=== PATIENT | female | born 2000 | race Hispanic/Latino ===

== ENCOUNTER 2022-09-03 18:08 | Emergency (ER) | payer OTHER ==
[2022-09-03 18:48] LABS: #Eosinphils 0.1 thou/uL (0.0-0.7); #Lymphocytes 1.9 thou/uL (1.20-3.40); #Monocytes 0.4 thou/uL (0.11-0.59); %Basophils 0.5 % (0.0-1.0); %Lymphocytes 29.8 % (28.0-48.0); %Monocytes 6.2 % (0.0-4.0); %Neutrophils 62.5 % (31.0-61.0); Hemoglobin 10.6 g/dL (12.0-16.0); Mean Corpuscular Volume 78.3 fl (78.0-98.0); Mean Platelet Volume 11.1 fL (7.4-10.4); Platelet Count 247 10x3/uL (130-400); RBC Distribution Width 15.7 % (11.5-14.5); Red Blood Cell (RBC) Count 4.23 mill/uL (4.00-5.20); White Blood Cell (WBC) Count 6.5 10x3/uL (4.8-10.8)
[2022-09-03 18:54] LABS: BHCG - Serum Negative (NEGATIVE); Pregs Control Background? CLEAR/WHITE (CLR/WHITE); Pregs Control Bar Appear? YES (CONTROL BAR)
[2022-09-03 19:20] LABS: ALT (SGPT) 11 U/L (8-55); AST (SGOT) 13 U/L (5-34); Albumin 4.4 g/dL (3.5-5.0); Alkaline Phosphatase 65 U/L (40-100); Anion Gap 10 mmol/L (10-20); BUN (Urea Nitrogen) 8 mg/dL (7.0-18.7); Bilirubin, Total 0.2 mg/dL (0.2-1.2); Calc. Creatinine Clearance 0 mL/min (70-130); Calcium 9.6 mg/dL (7.8-10.44); Carbon Dioxide 23 mmol/L (22-29); Chloride 108 mmol/L (98-107); Estimated GFR 121; Globulin 3.3 g/dL (2.4-3.5); Glucose 102 mg/dL (70-105); Potassium 3.8 mmol/L (3.5-5.1); Protein, Total 7.7 g/dL (6.0-8.3); Sodium 137 mmol/L (136-145)
[2022-09-03] MEDS ORDERED: hydrOXYzine 25 MG TAB ONE (21:01)
== END 2022-09-03 21:05 | disposition home or self-care (01) ==
LOC: ERS 18:08
DX: F41.1 Generalized anxiety disorder (principal); D64.9 Anemia, unspecified
CPT/HCPCS: 36415; 80053; 84703; 85025; 93005

== ENCOUNTER 2022-09-07 20:17 | Emergency (ER) | payer OTHER | END 2022-09-07 22:40 | disposition home or self-care (01) | LOC: ERS 20:17 | DX: R07.9 Chest pain, unspecified (principal); R06.02 Shortness of breath; D64.9 Anemia, unspecified | CPT/HCPCS: 93005 ==